=== PATIENT | male | born 1990 | race Caucasian/White ===

== ENCOUNTER 2022-10-24 12:26 | Emergency (ER) | payer MEDICAID ==
[~2022-10-24] VITALS: Ht 190.5 cm; Wt 86.4 kg
[~2022-10-24 12:26] MED LIST: KEP500T PO
[2022-10-24 12:48] VITALS: BP 137/86; PULSE 98; RESP 18; TEMP 98.7; O2SAT 96
[2022-10-24] MEDS ORDERED: levetiracetam 250mg tablet PO ONE (12:55)
== END 2022-10-24 13:24 | disposition home or self-care (01) ==
LOC: ER 12:27
DX: R56.9 Unspecified convulsions (principal); Z72.89 Other problems related to lifestyle; Z79.899 Other long term (current) drug therapy
CPT/HCPCS: 99283